=== PATIENT | female | born 1950 | race Caucasian/White ===

== ENCOUNTER 2020-09-30 10:13 | Emergency (ER) | payer MEDICARE ==
[~2020-09-30] VITALS: Ht 160 cm; Wt 83.9 kg
--- NOTE | 2020-09-30 10:50 | NUR ---
ED Nurse Note: Pt walked in accompanied by son from home c/o chest cyst x several years. Cyst was drained previously in 2018. Respirations even and unlabored on room air. Vitals stable as documented. A+Ox4, speaking in complete sentences.
[2020-09-30 11:11] VITALS: BP 126/72
--- NOTE | 2020-09-30 11:14 | Emergency Room Report ---
History of Present Illness General Chief Complaint: Skin Rash/Abscess Present Illness HPI Patient is a 70-year-old female presents for increased pain to a skin lesion to the center of her chest. Reports having previous MRI which confirmed a cystic lesion. This has been present for several years. Had previous drainage procedure. Denies any fever. Denies taking any blood thinners.Patient reports having worsening pain for the past 3 to 4 days. Pain was located in the center of the chest near the skin lesion. 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 COVID-19 Screening: Negative COVID-19 COVID-19 Testing Source: 2 months ago Patient History Past Medical History: see triage record Reviewed Nursing Documentation: PMH: Agreed; PSxH: Agreed Nursing Documentation-PMH Hx Cancer: Yes - melanoma Review of Systems All Other Systems: negative except mentioned in HPI Physical Exam Vital Signs Date Time Temp Pulse Resp B/P (MAP) Pulse Ox O2 Delivery O2 Flow Rate FiO2 09/30/20 10:45 98.2 63 20 121/67 (85) 94 Room Air General Appearance: well appearing, no apparent distress, alert, GCS 15 Head: normocephalic, atraumatic ENT: hearing grossly normal, normal voice Neck: full range of motion, supple Respiratory: no respiratory distress, speaking full sentences Musculoskeletal: normal inspection, gait/station normal Neurologic: alert, motor strength/tone normal, medical social consultant III-XII nml as tested, oriented x3, normal gait Psychiatric: mood/affect normal Skin: no rash, other - Central chest lesion approximately 1 cm in diameter with central umbilication., No drainage or discharge Procedures Incision and Drainage Incision and Drainage : Site: chest Blade Size: 11 I & D Procedure: betadine prep, sterile drapes applied, sterile dressing applied Wound Location: chest Wound's Depth, Shape: superficial Wound Length (cm): 0 Anesthesia: Lidocaine w/ Epi Volume Anesthetic (ccs): 2 Patient Tolerated: Well Complications: None Medical Decision Making Diagnostic Impression: Primary Impression: Infected cyst of skin ER Course Patient presented for skin rash. Differential diagnosis include was not limited to cyst, basal cell carcinoma, abscess among others. Patient has a benign exam and does not appear to require any imaging or laboratory testing at this time. Patient did not appear to be in any acute distress. Patient was advised responses alternatives of incision and drainage she wishes to proceed with drainage procedure. She was advised to have definitive management with a general surgeon.Patient was consented for incision and drainage. Incision and drainage was performed with small amount of purulent material. Patient tolerated procedure well. Estimated blood loss less than 5 cc. Sterile dressing was applied. Patient was advised wound care and return precautions. The patient is advised to follow up with primary care doctor in 2-3 days. Patient is advised to return if any worsening condition or if any changes in status that are concerning. This report is dictated with [employer] steak tenderizer machine software which may occasionally lead to discrepancies related to use of this software. Last Vital Signs Date Time Temp Pulse Resp B/P (MAP) Pulse Ox O2 Delivery O2 Flow Rate FiO2 09/30/20 10:45 98.2 63 20 121/67 (85) 94 Room Air Status: improved Disposition: HOME, SELF-CARE Condition: Stable Scripts Acetaminophen* (ACETAMINOPHEN EXTRA STRENGTH*) 500 Mg Tablet 500 MG ORAL Q8H PRN for For Pain, #30 TAB Prov: Micah Montejo MD 09/30/20 Trimethoprim/Sulfamethoxazole 160/800* (BACTRIM DS TABLET*) 1 Each Tablet 1 TAB ORAL Q12H, #14 TAB 0 Refills Prov: Micah Montejo MD 09/30/20 Referrals: NON PHYSICIAN (PCP) Micah Montejo MD Sep 30, 2020 11:14
[2020-09-30] MEDS ORDERED: Lidocaine 1% 10mg/ml/Epi 0.005mg/ml 10ml INJ ONE (11:15)
--- NOTE | 2020-09-30 11:23 | NUR ---
ED Nurse Note:pt. was explained procedure details and she signed the consent for incision and drainage of the cyst
[2020-09-30] MEDS ORDERED: BACTRIM DS TAB1 EAC1 ORAL (11:33)
[2020-09-30] MEDS ORDERED: ACETAMINOPHEN500 M3 ORAL (11:33)
[2020-09-30 11:40] VITALS: BP 126/72
--- NOTE | 2020-09-30 11:40 | NUR ---
ED Nurse Note: Pt cleared by health care Provider for discharge. DC instructions/prescription was given and explained to pt and verbalized understanding of teachings. All medical deviecs such as ID band removed. Pt is AAO x4, ambulatory and left with all personal belongings.
== END 2020-09-30 11:40 | disposition home or self-care (01) ==
LOC: EMR 10:44
DX: L72.9 Follicular cyst of the skin and subcutaneous tissue, unspecified (principal); L08.89 Other specified local infections of the skin and subcutaneous tissue; Z85.820 Personal history of malignant melanoma of skin
CPT/HCPCS: 10060; 99282